=== PATIENT | female | born 1990 | race Caucasian/White ===

== ENCOUNTER 2016-05-04 15:27 | Emergency (ER) | payer OTHER ==
[~2016-05-04] VITALS: Ht 165.1 cm; Wt 59.0 kg
[~2016-05-04 15:27] MED LIST: CYCLOBENZAPRINE5 M2 PO; GILDESS FE 1-21 EACH PO; LAMICTAL 100MG100 MG PO; PRILOSEC40 MG PO; SENOKOT8.6 MG PO; ZOFRAN ODT4 MG PO
[2016-05-04 16:34] LABS: ABSOLUTE BASOPHIL COUNT 0 /CUMM (0.0-0.2); ABSOLUTE EOSINOPHIL COUNT 0.2 /CUMM (0.0-0.7); ABSOLUTE GRANULOCYTE CT 4.3 /CUMM (1.4-6.5); ABSOLUTE LYMPH COUNT 3.2 /CUMM (1.2-3.4); ABSOLUTE MONOCYTE COUNT 0.7 /CUMM (0.10-0.60); BASOPHIL % 0.5 % (0.0-2.0); EOSINOPHIL % 2.6 % (0-5); GRANULOCYTE % 50.8 % (42.2-75.2); MEAN CORPUSCULAR HGB 28.4 PG (27.0-31.0); MEAN CORPUSCULAR HGB CONC 33.4 G/DL (33.0-37.0); MEAN CORPUSCULAR VOLUME 84.8 FL (81.0-99.0); MEAN PLATELET VOLUME 9.8 FL (7.4-10.4); PLATELET COUNT 179 /CUMM (130-400); RED BLOOD CELL CT 4.25 /CUMM (4.20-5.40); WHITE BLOOD CELL COUNT 8.6 /CUMM (4.8-10.8)
[2016-05-04] MEDS ORDERED: LARIN FE 1-201 EACH PO (17:17)
--- NOTE | 2016-05-04 17:26 | CT SCAN REPORT ---
EXAMINATION: CT ABDOMEN AND PELVIS WITHOUT CONTRAST CLINICAL INFORMATION: Left lower quadrant abdominal pain. Rectal mucus/blood. COMPARISON: None. TECHNIQUE: Multidetector volumetric imaging was performed from the superior aspect of the liver through the pubic symphysis. Sagittal and coronal reformatted images were obtained on the technologist's workstation. DLP: 268 mGy-cm. FINDINGS: Examination is limited secondary to lack of intravenous contrast. LUNG BASES: The visualized lung bases are unremarkable. LIVER, GALLBLADDER, AND BILIARY TREE: The liver is normal in size, shape, and attenuation. No focal hepatic lesion or biliary ductal dilatation is present. The gallbladder is unremarkable with no evidence of radiopaque gallstones, gallbladder wall thickening, or obvious pericholecystic inflammatory changes. PANCREAS: Unremarkable. SPLEEN: Unremarkable. ADRENAL GLANDS: Unremarkable. KIDNEYS AND URETERS: The kidneys are normal in size, shape, and attenuation. No hydronephrosis, hydroureter, or calculi seen. No perinephric stranding. BLADDER: Only partially distended but otherwise unremarkable. GASTROINTESTINAL TRACT: Bowel gas pattern is nonobstructive. No convincing acute bowel inflammation on this noncontrast CT scan. The appendix is not discretely delineated. ABDOMINAL WALL: No significant hernia is appreciated. LYMPH NODES: No pathologically enlarged lymph nodes demonstrated. VASCULAR: Unremarkable. PELVIC VISCERA: Possible trace nonspecific free pelvic fluid. The uterus is unremarkable. No suspicious adnexal demonstrated. OSSEOUS STRUCTURES: No acute osseous abnormalities. IMPRESSION: Nonobstructive bowel gas pattern. No convincing acute bowel inflammation on this noncontrast CT scan.
[2016-05-04 18:21] VITALS: BP 117/64
--- NOTE | 2016-05-04 18:38 | ED GI/GU/ABDOMINAL COMPLAINT ---
History of Present Illness General Chief Complaint: General Adult Stated Complaint: ?CONSTIPATION/BLOOD Source: patient, old records Exam Limitations: no limitations Vital Signs & Intake/Output Vital Signs & Intake/Output Vital Signs Date Time Temp Pulse Resp B/P Pulse O2 O2 Flow FiO2 Ox Delivery Rate 05/04 1821 99.0 67 16 117/64 99 Room Air 05/04 1552 97.8 67 18 144/95 100 Room Air Allergies Coded Allergies: amoxicillin (Severe, HIVES 05/04/16) Penicillins (Intermediate, RASH 05/04/16) Uncoded Allergies: ENVIRONMENTAL (04/30/11) Reconcile Medications Norethindrone-E.estradiol-Iron (Chuck Fe 1-20 Tablet) 1 MG-20 MCG (21)/75 MG (7) TABLET 1 TAB PO DAILY CONTROL (Reported) Triage Note: TRIAGE: 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 -N/V, REPORTS BLOODY MUCOUS PER RECTUM X 2 WEEKS. -URINARY S/S. LMP 04/21/2016. Triage Nurses Notes Reviewed? yes ? n Is pt currently ? No HPI: A she presents for evaluation of episodes of blood and mucus per rectum intermittently over the past 2 weeks. Patient states she also feels gassy at times. Patient has had prior episodes of this nature over the past few months but the frequency has escalated to roughly once a day over the past 2 weeks. She denies any associated fever or cold symptoms. She denies any recent travel. There is no family history of GI disease. She denies drug or alcohol use. nothing seems to make these episodes improved. Past History Travel History Traveled to [place] past 21 day No Medical History Any Pertinent Medical History? 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 No Review of Systems Review of Systems Constitutional: Reports: no symptoms. EENTM: Reports: no symptoms. Respiratory: Reports: no symptoms. Cardiovascular: Reports: no symptoms. GI: Reports: see HPI. Genitourinary: Reports: no symptoms. Musculoskeletal: Reports: no symptoms. Skin: Reports: no symptoms. Neurological/Psychological: Reports: no symptoms. Hematologic/Endocrine: Reports: no symptoms. Immunologic/Allergic: Reports: no symptoms. All Other Systems: Reviewed and Negative Physical Exam Physical Exam Gastrointestinal: see below Comments: Gen.: Well-nourished, well-developed, no acute respiratory distress. Head: Normocephalic, atraumatic. Eyes: Normal inspection bilaterally Ears: Normal inspection bilaterally Nose: Normal inspection Throat/mouth : Moist mucosa Neck: Supple, full range of motion, no goiter Heart: Regular rate and rhythm, no murmurs rubs or gallops Lungs: Clear to auscultation bilaterally with normal air entry Chest: Nontender Back: Normal range of motion Abdomen: Soft, left lower quadrant abdominal tenderness without rebound or guarding, no palpable masses, nondistended, normal bowel sounds Extremities: Normal range of motion grossly, equal radial pulses, no cyanosis clubbing or edema Neurologic: Cranial nerves grossly intact, speech is clear Skin: warm and dry Psychiatric: Calm, cooperative, no apparent delusions or hallucinations Rectal: No stool in the vault, mild tenderness of the left lateral rectum, no palpable masses, residue is questionably heme positive Core Measures ACS in differential dx? No Severe Sepsis Present: No Septic Shock Present: No Progress Differential Diagnosis: IBS, IBD, enteroinvasive colitis Plan of Care: Orders Procedure Date/time Status URINALYSIS 05/04 162 Complete LIPASE 05/04 162 Complete HUMAN BETA HCG SCREEN 05/04 162 Complete COMPREHENSIVE METABOLIC PANEL 05/04 1621 Complete CBC WITHOUT DIFFERENTIAL 05/04 162 Complete Laboratory Tests 05/04/16 1731: Urinalysis LIGHT H, Urine Color YEL, Urine Clarity HAZY H, Urine pH 8.5 H, Ur Specific [place] 1.015, Urine Protein TRACE H, Urine Ketones TRACE H, Urine Nitrite NEG, Urine Bilirubin NEG, Urine Urobilinogen 2.0 H, Ur Leukocyte Esterase NEG, Ur Microscopic SEDIMENT EXAMINED, Urine WBC 1-3 H, Ur Epithelial Cells MANY H, Urine Hemoglobin NEG, Urine Glucose NEG 05/04/16 1625: Anion Gap 15, Estimated GFR > 60, BUN/Creatinine Ratio 21.3, Glucose 95, Calcium 9.2, Total Bilirubin 0.6, AST 18, ALT 33, Alkaline Phosphatase 57, Total Protein 6.8, Albumin 4.0, Globulin 2.8, Albumin/Globulin Ratio 1.4, Lipase 44, Total Beta HCG NEGATIVE, CBC w Diff NO MAN DIFF REQ, RBC 4.25, MCV 84.8, MCH 28.4, RDW 13.0, MPV 9.8, Gran % 50.8, Lymphocytes % 37.5, Monocytes % 8.6, Eosinophils % 2.6, Basophils % 0.5, Absolute Granulocytes 4.3, Absolute Lymphocytes 3.2, Absolute Monocytes 0.7 H, Absolute Eosinophils 0.2, Absolute Basophils 0, PUBS MCHC 33.4 Initial ED EKG: none Comments: 05/04/2016 6:59:15 PM I have updated mikey and her mother on test results. I suspect inflammatory bowel disease although irritable bowel syndrome is also a possibility. Have asked that she follow up with her GI specialist and in the meantime I will provide symptomatic care. Departure Departure Disposition: HOME OR SELF CARE Condition: Stable Clinical Impression Primary Impression: Inflammatory bowel disease Referrals: DALE CASTLE,HIEU (PCP/Family) XOCHITL CASTLE,AMAYA Abarca Additional Instructions: Follow-up with your GI specialist this week for reevaluation. Avoid laxatives. Maintained a good fluid intake. Levsin as needed for gas pains or cramps. Notify your primary care doctor of this emergency department visit and treatment plan. Return if any concerns or sudden worsening. Please note that there might be incidental findings in your evaluation that are unrelated to the current emergency department visit. Please notify your primary care doctor about this emergency department visit in order to obtain and review all of the testing performed so that these incidental findings can be monitored as needed. If you had an x-ray performed, please understand that some fractures may not be seen on the initial set of x-rays. If your symptoms persist you might need a repeat set of x-rays to check for such a fracture. If you had a laceration evaluated, please understand that foreign bodies such as glass or wood may not be visible to the naked eye or on plain x-rays. If the wound becomes red, swollen, increasingly more painful or if there is any drainage from the wound, please have it reevaluated by a physician for the possibility of a retained foreign body. Thank you for choosing the [facility] Emergency Department for your care. It was a pleasure to serve you today. Josué Wang M.D. [facility] Departure Forms: Customer Survey General Discharge Information Prescriptions: Current Visit Scripts Hyoscyamine (Levsin) 1-2 TAB PO Q6P PRN ABDOMINAL CRAMPS #20 TAB
[2016-05-04] MEDS ORDERED: LEVSIN0.125 M1 PO (19:07)
== END 2016-05-04 19:16 ==
LOC: ERH 15:27
PROVIDERS: Emergency Medicine
DX: K52.9 Noninfective gastroenteritis and colitis, unspecified (principal)
CPT/HCPCS: 74176; 81001